=== PATIENT | female | born 2005 | race Caucasian/White ===

== ENCOUNTER 2024-06-02 02:17 | Emergency (ER) | payer BC ==
[~2024-06-02] VITALS: Ht 162.6 cm; Wt 122.7 kg
[~2024-06-02 02:17] MED LIST: MEDROL 4MG DOSPA4 MG PO; NEXPLANON68 MG ID; VOLTAREN 50MG T50 MG PO
[2024-06-02] MEDS ORDERED: Ketorolac 15 MG/ML VIAL IV ONE (02:45)
[2024-06-02] MEDS ORDERED: Ondansetron 4 MG/2 ML VIAL IV ONE (02:45)
[2024-06-02 02:51] LABS: PH 5.5 (5.0-8.5); URINE APPEARANCE CLOUDY (CLEAR/HAZY); URINE BLOOD NEGATIVE (NEGATIVE); URINE COLOR YELLOW (YELLOW); URINE GLUCOSE NEGATIVE (NEGATIVE); URINE KETONE TRACE (NEGATIVE); URINE NITRATE NEGATIVE (NEGATIVE); URINE PROTEIN(semi-quant) TRACE (NEGATIVE)
[2024-06-02 02:57] LABS: COLLECTION METHOD CLEAN CATCH
[2024-06-02 02:58] LABS: SQUAMOUS EPITHELIAL 20-50 /hpf (0-10); URINE BACTERIA MANY /hpf (NONE SEEN); URINE RBC 0-2 /hpf (0-2); URINE WBC 0-2 /hpf (0-2)
[2024-06-02 03:08] LABS: BASO % 0.3 % (0.0-2.0); EOS # 0.3 K/mm3 (0.0-0.7); EOS % 2.4 % (0.0-4.0); GRAN # 6.9 K/mm3 (1.4-6.5); HEMATOCRIT 41.7 % (35.0-45.0); HEMOGLOBIN 13.5 g/dl (12.0-15.0); LYMPH # 4.7 K/mm3 (1.2-3.4); LYMPH % 37.1 % (20.0-51.0); MEAN CELL VOLUME 84 fl (80.0-95.0); MEAN CORPUSCULAR HEMOGLOBIN 27 pg (26-32); MEAN CORPUSCULAR HGB CONC 32 g/dl (33.0-37.0); MEAN PLATELET VOLUME 9.3 fl (7.4-10.4); MONO # 0.6 K/mm3 (0.1-0.6); PLATELET COUNT 352 K/mm3 (130-400); RED BLOOD COUNT 4.95 M/mm3 (4.10-5.30); REDCELL DISTRIBUTION WIDTH-CV 12.9 % (11.5-14.5)
[2024-06-02] MEDS ORDERED: NS 50 ML IV SCH (03:10)
[2024-06-02] MEDS ORDERED: Iohexol 300 - 100 ML VIAL IV ONE (03:10)
[2024-06-02 03:23] LABS: ALBUMIN 3.8 g/dL (3.5-5.0); BILIRUBIN,TOTAL 0.3 mg/dL (0.2-1.2); CALCIUM 9.6 mg/dL (8.4-10.2); CREATININE, serum 0.83 mg/dL (0.57-1.11); POTASSIUM 3.6 mEq/L (3.5-4.5); TOTAL PROTEIN 6.7 g/dl (6.2-8.1)
[2024-06-02] MEDS ORDERED: Morphine 4 MG/ML VIAL IV ONE ×2 (03:30→04:15)
[2024-06-02] MEDS ORDERED: CEPHALEXIN500 M1 PO (04:37)
[2024-06-02] MEDS ORDERED: Home HYDROcodone/Acetaminophen 5/325 MG #4 TABS/PACK PO ONE (04:45)
[2024-06-02] MEDS ORDERED: ZOFRAN ODT4 MG PO (05:21)
[2024-06-02 05:24] VITALS: BP 125/84; PULSE 70; TEMP 98
== END 2024-06-02 05:33 | disposition home or self-care (01) ==
LOC: COL.ER 02:17
PROVIDERS: Emergency Medicine
DX: N13.2 Hydronephrosis with renal and ureteral calculous obstruction (principal)
CPT/HCPCS: J1885; J2270; J2405; Q9967

== ENCOUNTER 2024-06-02 11:46 | Emergency (ER) | payer BC ==
[~2024-06-02] VITALS: Ht 162.6 cm; Wt 122.7 kg
[~2024-06-02 11:46] MED LIST changes: +CEPHALEXIN500 M1 PO; +ZOFRAN ODT4 MG PO
[2024-06-02 11:59] VITALS: TEMP 97.7
[2024-06-02] MEDS ORDERED: droPERidol 2.5 MG/ML 2 ML VIAL IM ONE (12:15)
[2024-06-02 13:28] VITALS: BP 128/74; PULSE 68
== END 2024-06-02 13:28 | disposition home or self-care (01) ==
LOC: COL.ER 11:46
DX: R11.2 Nausea with vomiting, unspecified (principal)
CPT/HCPCS: J1790